=== PATIENT | female | born 1975 | race Caucasian/White ===

== ENCOUNTER 2024-10-16 07:49 | Day surgery (SDC) | payer OTHER ==
[~2024-10-16] VITALS: Ht 160 cm; Wt 78.7 kg
[2024-10-16] MEDS: SODIUM CHLORIDE 0.9% 1,000 ML IV ONE (08:39)
[2024-10-16] MEDS ORDERED: LIDOCAINE/PF 2% 5 ML SYRINGE IVP ONE (12:00)
[2024-10-16] MEDS ORDERED: LIDOCAINE/PF 2% 5 ML VIAL IM ONE (12:00)
[2024-10-16] MEDS ORDERED: GLYCOPYRROLATE 0.2 MG/ML VIAL IM ONE ×2 (12:00)
[2024-10-16] MEDS ORDERED: PROPOFOL 1% 20 ML VIAL IVP ONE ×2 (12:00)
== END 2024-10-16 11:26 | disposition home or self-care (01) ==
LOC: SURGERY 07:49
PROVIDERS: ATTEND Internal Medicine
DX: Z12.11 Encounter for screening for malignant neoplasm of colon (principal); K63.5 Polyp of colon; K57.30 Diverticulosis of large intestine without perforation or abscess without bleeding; E11.9 Type 2 diabetes mellitus without complications; K74.60 Unspecified cirrhosis of liver
CPT/HCPCS: 45380; 88305; 84703; J2704; J3490 ×3